=== PATIENT | female | born 1975 | race Caucasian/White ===

== ENCOUNTER 2017-06-16 18:34 | Emergency (ER) | payer OTHER ==
[~2017-06-16] VITALS: Ht 167.6 cm; Wt 62.1 kg
[~2017-06-16 18:34] MED LIST: ADVIL100 M1 PO; FLEXERIL10 MG PO; LEXAPRO20 MG PO; NORCO 5-325 TA1 EACH PO; TRAZODONE HCL50 MG PO
== END 2017-06-17 00:23 | disposition home or self-care (01) ==
LOC: ED 18:34
DX: M54.41 Lumbago with sciatica, right side (principal); F32.9 Major depressive disorder, single episode, unspecified; Z90.49 Acquired absence of other specified parts of digestive tract; Z98.51 Tubal ligation status; Z87.442 Personal history of urinary calculi; Z88.0 Allergy status to penicillin; Z88.2 Allergy status to sulfonamides; Z88.5 Allergy status to narcotic agent; Z88.1 Allergy status to other antibiotic agents; Z79.899 Other long term (current) drug therapy
CPT/HCPCS: 73502; 99283

== ENCOUNTER 2025-07-21 14:07 | Emergency (ER) | payer OTHER ==
[~2025-07-21] VITALS: Ht 167.6 cm; Wt 61.5 kg
[2025-07-21] MEDS ORDERED: LISINOPRIL-HCT1 EAC2 PO (14:29)
[2025-07-21] MEDS ORDERED: OLANZapine 10 MG TAB PO ONE (15:30)
[2025-07-21 15:57] LABS: BASOPHILS 0.8 % (0.1-1.2); EOSINOPHILS 0.6 % (0.7-5.8); LYMPHOCYTES 36.6 % (19.3-51.7); MCH 30.7 PG (25.6-32.2); MCHC 33.7 g/dL (32.2-35.5); MCV 91.0 fL (79.4-94.8); MONOCYTES 7.4 % (4.7-12.5); NEUTROPHILS 54.4 % (34.0-71.1); RBC 3.98 M/uL (3.93-5.22)
[2025-07-21 16:02] LABS: AMPHETAMINES, URINE NEGATIVE (NEGATIVE); BARBITURATES, URINE NEGATIVE (NEGATIVE); BENZODIAZEPINE, URINE NEGATIVE (NEGATIVE); CANNABINOID, URINE NEGATIVE (NEGATIVE); COCAINE, URINE NEGATIVE (NEGATIVE); ECSTASY, URINE NEGATIVE (NEGATIVE); FENTANYL, URINE NEGATIVE (NEGATIVE); METHADONE, URINE NEGATIVE (NEGATIVE); OPIATES, URINE NEGATIVE (NEGATIVE); OXYCODONE, URINE NEGATIVE (NEGATIVE); PHENCYCLIDINE, URINE NEGATIVE (NEGATIVE)
[2025-07-21 16:21] LABS: ALCOHOL, MEDICAL <3 ng/dL (<3); ALT (SGPT) 19 U/L (14-59); AST (SGOT) 14 U/L (15-37); GLOMERULAR FILTRATION RATE,EST 80 mL/min (>60); PROTEIN, TOTAL 7.5 g/dL (6.4-8.2); TSH, 3RD GENERATION 1.973 uIU/mL (0.358-3.740); UREA NITROGEN 9 mg/dL (7-18)
[2025-07-21] MEDS ORDERED: OLANZAPINE5 MG PO (16:39)
[2025-07-21 16:58] VITALS: BP 117/877
== END 2025-07-21 17:00 | disposition home or self-care (01) ==
LOC: ED 14:07
PROVIDERS: Emergency Medicine
DX: F41.9 Anxiety disorder, unspecified (principal); F22 Delusional disorders; I10 Essential (primary) hypertension; Z88.0 Allergy status to penicillin; Z88.2 Allergy status to sulfonamides; Z88.5 Allergy status to narcotic agent; Z79.899 Other long term (current) drug therapy
CPT/HCPCS: 36415; 80053; 80307; 84443; 84703; 85025; 99284; A9270; G0480